=== PATIENT | male | born 1945 | race Caucasian/White ===

== ENCOUNTER 2016-06-06 19:02 | Emergency (ER) | payer OTHER ==
[~2016-06-06] VITALS: Ht 182.9 cm; Wt 88.0 kg
[2016-06-06 19:06] VITALS: BP 132/90; PULSE 63; RESP 18; TEMP 97.8; O2SAT 97
[2016-06-06] MEDS ORDERED: FINA5TAB2 PO (19:10)
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
[2016-06-06] MEDS ORDERED: ACETAMINOPHEN 325 MG TAB PO ONE (21:00)
[2016-06-06 21:40] VITALS: BP 128/74; PULSE 64; RESP 14; O2SAT 98
[2016-06-06] MEDS ORDERED: ACET325T PO (22:04)
== END 2016-06-06 22:12 | disposition home or self-care (01) ==
LOC: PHED 19:02
DX: R20.0 Anesthesia of skin (principal); M54.89 Other dorsalgia; V49.49XA Driver injured in collision with other motor vehicles in traffic accident, initial encounter
CPT/HCPCS: 72125

== ENCOUNTER 2017-01-31 11:03 | Emergency (ER) | payer OTHER ==
[~2017-01-31] VITALS: Ht 182.9 cm; Wt 88.1 kg
[~2017-01-31 11:03] MED LIST: ACET325T PO; FINA5TAB2 PO
[2017-01-31 11:07] VITALS: BP 171/96; PULSE 68; RESP 18; TEMP 97.6; O2SAT 96
[2017-01-31] MEDS ORDERED: MORPHINE SULFATE 4 MG/ML INJ IV PUSH ONE (11:30)
[2017-01-31] MEDS ORDERED: ONDANSETRON HCL 4 MG/2 ML VIAL IV PUSH ONE (11:30)
[2017-01-31] MEDS ORDERED: SODIUM CHLOR 0.9% 1000 ML INJ 1,000 ML IV ONE (11:30)
[2017-01-31] MEDS ORDERED: KETOROLAC TROMETHAMINE 30 MG/ML (IVP) VIAL IV PUSH ONE (11:30)
--- NOTE | 2017-01-31 11:32 | PD ---
HPI Chief Complaint: Flank/Kidney Pain Time Seen by Provider: 11:18 Travel History International Travel<30 days: No Contact w/Intl Traveler<30days: No Traveled to known affect area: No History of Present Illness HPI 71-year-old male presents with acute onset of right sided back and abdominal pain with nonbloody emesis. He states he's had 4 kidney stones before with the last one being 10 years ago. He states he's passed all of them on his own in the past. He denies any other specific complaints other than having difficulty urinating. He states Dr. Espinoza is his urologist. Quality pain is sharp. It appears severe in nature. PFSH Past Medical History Narrative Medical kidney stones Past Surgical History Eye Surgery: Yes (Multiple eye sx's ) Social History Alcohol Use: No Tobacco Use: No Substance Use: No Allergies-Medications (Allergen,Severity, Reaction): Coded Allergies: penicillin G (Unverified Allergy, Severe, CHILDHOOD WARNING, 12/16/16) Reported Meds & Prescriptions Reported Meds & Active Scripts Active Zofran Odt (Ondansetron Odt) 4 Mg Tab 4 Mg SL Q8HR PRN Percocet (Oxycodone-Acetaminophen) 5-325 mg Tab 1 Tab PO Q6H PRN Reported Finasteride 5 Mg Tab 5 Mg PO DAILY Do not crush. Review of Systems Except as stated in HPI: all other systems reviewed are Neg Physical Exam Narrative GENERAL: Well-nourished, well-developed patient. Uncomfortable, actively vomiting SKIN: Warm and dry. HEAD: Normocephalic and atraumatic. EYES: No injection or drainage. ENT: No nasal drainage noted. NECK: Supple, trachea midline. CARDIOVASCULAR: Regular rate and rhythm RESPIRATORY: No increased effort. No accessory muscle use. GASTROINTESTINAL: Abdomen soft, tender on right mid abdomen, nondistended. EXTREMITIES: No edema. BACK: Nontender without obvious deformity in midline. No CVA tenderness NEUROLOGICAL: Awake and alert. Motor and sensory grossly within normal limits. Normal speech. Data Data Last Documented VS Vital Signs Date Time Temp Pulse Resp B/P (MAP) Pulse Ox O2 Delivery O2 Flow Rate FiO2 01/31/17 11:25 Room Air 01/31/17 11:07 97.6 68 18 171/96 (121) 96 Orders Orders Complete Blood Count With Diff (01/31/17 11:18) Comprehensive Metabolic Panel (01/31/17 11:18) Urinalysis - C+S If Indicated (01/31/17 11:18) Lipase (01/31/17 11:18) Ct Abd/Pel W/O Iv Contrast (01/31/17 ) Iv Access Insert/Monitor (01/31/17 11:18) Oximetry (01/31/17 11:18) Ondansetron Inj (Zofran Inj) (01/31/17 11:30) Ketorolac Inj (Toradol Inj) (01/31/17 11:30) Sodium Chlor 0.9% 1000 Ml Inj (Ns 1000 M (01/31/17 11:30) Morphine Inj (Morphine Inj) (01/31/17 11:30) Urine Culture (01/31/17 12:15) Labs Laboratory Tests Test 01/31/17 11:28 01/31/17 12:15 White Blood Count 10.3 TH/MM3 Red Blood Count 4.47 MIL/MM3 Hemoglobin 14.0 GM/DL Hematocrit 42.4 % Mean Corpuscular Volume 94.7 FL Mean Corpuscular Hemoglobin 31.3 PG Mean Corpuscular Hemoglobin Concent 33.1 % Red Cell Distribution Width 13.3 % Platelet Count 199 TH/MM3 Mean Platelet Volume 10.4 FL Neutrophils (%) (Auto) 72.8 % Lymphocytes (%) (Auto) 16.5 % Monocytes (%) (Auto) 7.9 % Eosinophils (%) (Auto) 2.2 % Basophils (%) (Auto) 0.6 % Neutrophils # (Auto) 7.5 TH/MM3 Lymphocytes # (Auto) 1.7 TH/MM3 Monocytes # (Auto) 0.8 TH/MM3 Eosinophils # (Auto) 0.2 TH/MM3 Basophils # (Auto) 0.1 TH/MM3 CBC Comment DIFF FINAL Differential Comment Blood Urea Nitrogen 25 MG/DL Creatinine 1.40 MG/DL Random Glucose 98 MG/DL Total Protein 7.5 GM/DL Albumin 4.0 GM/DL Calcium Level 8.7 MG/DL Alkaline Phosphatase 102 U/L Aspartate Amino Transf (AST/SGOT) 23 U/L Alanine Aminotransferase (ALT/SGPT) 29 U/L Total Bilirubin 1.1 MG/DL Sodium Level 138 MEQ/L Potassium Level 4.4 MEQ/L Chloride Level 104 MEQ/L Carbon Dioxide Level 28.5 MEQ/L Anion Gap 6 MEQ/L Estimat Glomerular Filtration Rate 50 ML/MIN Lipase 127 U/L Urine Collection Type CLEAN CATCH Urine Color YELLOW Urine Turbidity CLEAR Urine pH 6.0 Urine Specific [place] 1.018 Urine Protein NEG mg/dL Urine Glucose (UA) NEG mg/dL Urine Ketones NEG mg/dL Urine Occult Blood LARGE Urine Nitrite NEG Urine Bilirubin NEG Urine Leukocyte Esterase NEG Urine RBC INNUM /hpf Urine WBC 15-19 /hpf Urine Squamous Epithelial Cells 0-5 /hpf Microscopic Urinalysis Comment CULTURE INDICATED Urine Collection Time 12:15 [facility] Medical Decision Making Medical Screen Exam Complete: Yes Emergency Medical Condition: Yes Medical Record Reviewed: Yes (past history confirmed) Interpretation(s) CBC & BMP Diagram 01/31/17 11:28 Total Protein 7.5, Albumin 4.0, Calcium Level 8.7, Alkaline Phosphatase 102, Aspartate Amino Transf (AST/SGOT) 23, Alanine Aminotransferase (ALT/SGPT) 29, Total Bilirubin 1.[address] scan shows a right UVJ stone versus bladder calculus with mild hydronephrosis , hypodense renal lesion noted and patient given copy for outpatient follow-up Differential Diagnosis Kidney stone, UTI, renal failure, pancreatitis Narrative Course Will check blood work, urinalysis, CT scan abdominal pelvis and dose with IV fluids, Zofran, morphine, Toradol and reevaluate On recheck Patient denies any new complaints and states that they are feeling better. Notes history of mild creatinine elevation although unaware of exact number, will follow this and CT results as outpatient, all questions answered. Patient knows that follow up is incumbent on them and to return to the emergency room immediately if new or worsening symptoms develop. Patient given strict return precautions, vitals reviewed and are normal, agrees to further workup as an outpatient. Diagnosis Primary Impression: Kidney stone Additional Impression: Renal insufficiency Patient Instructions: General Instructions Additional Instructions: return as needed, follow with urology, percocet as needed for severe pain, don' t take while driving Med/Other Pt SpecificInfo: Prescription(s) given Scripts Ondansetron Odt (Zofran Odt) 4 Mg Tab 4 MG SL Q8HR Y for Nausea/Vomiting, #15 TAB 0 Refills Prov: Tanna Jimenez MD 01/31/17 Oxycodone-Acetaminophen (Percocet) 5-325 mg Tab 1 TAB PO Q6H Y for PAIN, #15 TAB 0 Refills Prov: Tanna Jimenez MD 01/31/17 Disposition: 01 DISCHARGE HOME Condition: Stable Tanna Jimenez MD Jan 31, 2017 11:32
[2017-01-31 11:36] LABS: AUTOMATED NEUTROPHIL # 7.5 TH/MM3 (1.8-7.7); BASOPHIL # 0.1 TH/MM3 (0-0.2); BASOPHIL % 0.6 % (0.0-2.0); EOSINOPHIL # 0.2 TH/MM3 (0-0.4); EOSINOPHIL % 2.2 % (0.0-4.0); HEMATOCRIT 42.4 % (39.0-51.0); HEMO FLAGS DIFF FINAL; LYMPH % 16.5 % (9.0-44.0); LYMPHOCYTE # 1.7 TH/MM3 (1.0-4.8); MEAN CELL VOLUME 94.7 FL (80.0-100.0); MEAN CORPUSCULAR HEMOGLOBIN 31.3 PG (27.0-34.0); MEAN CORPUSCULAR HGB CONC 33.1 % (32.0-36.0); MONO % 7.9 % (0.0-8.0); NEUT % 72.8 % (16.0-70.0); PLATELET COUNT 199 TH/MM3 (150-450); RED BLOOD COUNT 4.47 MIL/MM3 (4.50-5.90); RED CELL DISTRIBUTION WIDTH 13.3 % (11.6-17.2); WHITE BLOOD COUNT 10.3 TH/MM3 (4.0-11.0)
[2017-01-31 11:44] LABS: CHLORIDE 104 MEQ/L (98-107); POTASSIUM 4.4 MEQ/L (3.5-5.1); SODIUM (NA) 138 MEQ/L (136-145)
[2017-01-31 11:49] LABS: ANION GAP 6 MEQ/L (5-15); BICARBONATE 28.5 MEQ/L (21.0-32.0); BLOOD UREA NITROGEN 25 MG/DL (7-18)
[2017-01-31 11:52] LABS: ALT (GPT) 29 U/L (12-78); AST (GOT) 23 U/L (15-37); GLOMERULAR FILTRATION RATE 50 ML/MIN (>89)
[2017-01-31 11:54] LABS: TOTAL BILIRUBIN ADULT 1.1 MG/DL (0.2-1.0)
[2017-01-31 11:55] LABS: ALKALINE PHOSPHATASE 102 U/L (45-117)
--- NOTE | 2017-01-31 11:58 | RADRPT ---
EXAM DATE/TIME: 01/31/2017 11:37 [facility] COMPARISON: No previous studies available for comparison. INDICATIONS : Right mid abdominal pain. ORAL CONTRAST: No oral contrast ingested. RADIATION DOSE: 20.99 CTDIvol (mGy) MEDICAL HISTORY : Renal calculi. SURGICAL HISTORY : None. ENCOUNTER: Initial ACUITY: 1 day PAIN SCALE: 9/10 LOCATION: Right abdominal. TECHNIQUE: Volumetric scanning of the abdomen and pelvis was performed. Using automated exposure control and ad justment of the mA and/or kV according to patient size, radiation dose was kept as low as reasonably achievable to obtain optimal diagnostic quality images. DICOM format image data is available electro nically for review and comparison. FINDINGS: LOWER LUNGS: The visualized lower lungs are clear. LIVER: Homogeneous density without lesion. There is no dilation of the biliary tree. No calcified gallston es. SPLEEN: Normal size without lesion. PANCREAS: Within normal limits. KIDNEYS: There is mild right-sided hydronephrosis and hydroureter extending to the region of the UVJ. There is a 3 x 4 mm calcified calculus in the bladder near the right UVJ, suspect just beyond. There are mult iple punctate, 1-2 mm, calcified calyceal calculi in the right kidney. There is a 1.4 x 0.9 cm hypode nse lesion arising from the posterior mid left kidney with indeterminate density. Left kidney is othe rwise unremarkable without evidence for hydronephrosis. ADRENAL GLANDS: Within normal limits. VASCULAR: There is no aortic aneurysm. BOWEL/MESENTERY: Mild sigmoid diverticulosis and scattered distal descending colonic diverticula. Bowel is otherwise g rossly unremarkable without evidence for obstruction. No significant free fluid or drainable fluid co llection. ABDOMINAL WALL: Within normal limits. RETROPERITONEUM: There is no lymphadenopathy. BLADDER: Mild diffuse bladder wall thickening. Again, 3 x 4 mm calcified calculus in the right UVJ, likely jus t beyond. REPRODUCTIVE: Nonspecific prostate enlargement. INGUINAL: Small fat containing left inguinal hernia. MUSCULOSKELETAL: Within normal limits for patient age. CONCLUSION: 1. 3 x 4 mm calcified bladder calculus near the right UVJ with associated mild right-sided hydrourete ronephrosis consistent with right UVJ calculus or transiting right UVJ calculus. 2. Multiple additional punctate, 1-2 mm, nonobstructing calyceal calculi on the right. 3. Indeterminate density 1.4 x 0.9 cm hypodense lesion arising from the posterior mid left kidney. Th is may be further evaluated with renal ultrasound exam on outpatient basis as clinically warranted. 4. Nonspecific prostate enlargement. Sergio Banks MD on January 31, 2017 at 11:47 Board Certified Radiologist. This report was verified electronically.
[2017-01-31] MEDS ORDERED: PERC5TAB12 PO (12:16)
[2017-01-31] MEDS ORDERED: ZOFR4TAB3 SL (12:16)
[2017-01-31 12:20] LABS: BLOOD, URINE LARGE (NEG); GLUCOSE,URINE NEG (NEG); KETONE, URINE NEG (NEG); NITRITE,URINE NEG (NEG)
[2017-01-31 12:24] VITALS: RESP 17
[2017-01-31 12:25] LABS: METHOD OF COLLECTION CLEAN CATCH; URINE COLOR YELLOW (YELLW/STRAW)
[2017-01-31 12:27] LABS: COMMENT (UR) CULTURE INDICATED; CULTURE IF INDICATED CULTURE INDICATED; RBC, URINE INNUM /hpf (0-3); SQUAMOUS EPITHELIAL CELL URINE 0-5 /hpf (0-5); WBC, URINE 15-19 /hpf (0-5)
== END 2017-01-31 12:30 | disposition home or self-care (01) ==
LOC: PHED 11:03
DX: N20.0 Calculus of kidney (principal); N28.9 Disorder of kidney and ureter, unspecified; Z87.442 Personal history of urinary calculi; R30.0 Dysuria
CPT/HCPCS: 74176; 80053; 81001; 83690; 85025; 87086; 96361; 96374; 96375; 99285; J1885; J2405; J7030